=== PATIENT | female | born 1990 | race Caucasian/White ===

== ENCOUNTER 2020-05-10 17:39 | Emergency (ER) | payer OTHER ==
[~2020-05-10] VITALS: Ht 172.7 cm; Wt 147.4 kg
[~2020-05-10 17:39] MED LIST: Citalopram HBr20 MG PO; ESTR2 PO; IBUP600 PO; LITH300ER PO; Lamisil250 MG PO; MULVITMINE PO; OXYACE5T PO; Percocet 5-3251 EACH PO
[2020-05-12 20:07] LABS: HCV ANTIBODY 0.1 (0.0-0.9); HIV SCREEN 4TH GENERATION WRFX Non Reactive (Non Reactive)
== END 2020-05-10 18:15 | disposition home or self-care (01) ==
LOC: ER 17:39
PROVIDERS: Physician Assistant
DX: S61.230A Puncture wound without foreign body of right index finger without damage to nail, initial encounter (principal); Z77.21 Contact with and (suspected) exposure to potentially hazardous body fluids; W46.1XXA Contact with contaminated hypodermic needle, initial encounter; Z23 Encounter for immunization
CPT/HCPCS: 36415; 84460; 86317; 86803; 87389; 90471; 90714; 99282-25

== ENCOUNTER 2023-08-26 19:12 | Emergency (ER) | payer OTHER ==
[~2023-08-26] VITALS: Ht 172.7 cm; Wt 158.8 kg
[2023-08-26 19:26] VITALS: BP 142/94
[2023-08-26 20:25] LABS: Influenza A, PCR NEGATIVE (NEGATIVE); Influenza B, PCR NEGATIVE (NEGATIVE); Resp Syncytial Virus, PCR NEGATIVE (NEGATIVE); SARS-Cov-2 (COVID-19) PCR, MMC NEGATIVE (NEGATIVE)
== END 2023-08-26 21:15 | disposition home or self-care (01) ==
LOC: ER 19:12
PROVIDERS: Emergency Medicine
DX: J06.9 Acute upper respiratory infection, unspecified (principal); F17.210 Nicotine dependence, cigarettes, uncomplicated; Z88.0 Allergy status to penicillin; Z79.899 Other long term (current) drug therapy
CPT/HCPCS: 0241U; 99284

== ENCOUNTER 2024-05-12 15:21 | Emergency (ER) | payer OTHER ==
[~2024-05-12] VITALS: Ht 172.7 cm; Wt 158.8 kg
[2024-05-12 15:29] VITALS: BP 96/83
[2024-05-12] MEDS ORDERED: Lidocaine 4% 1 Patch TOP ONE (17:25)
[2024-05-12] MEDS ORDERED: LIDOCAINE1 EACH TOP (17:27)
[2024-05-12] MEDS ORDERED: Robaxin750 MG PO (17:27)
== END 2024-05-12 17:36 | disposition home or self-care (01) ==
LOC: ER 15:21
DX: M25.531 Pain in right wrist (principal); M25.511 Pain in right shoulder; F17.210 Nicotine dependence, cigarettes, uncomplicated; Z88.0 Allergy status to penicillin; Z79.899 Other long term (current) drug therapy
CPT/HCPCS: 73110; 99283-25; A9270; L3917

== ENCOUNTER 2025-06-09 10:29 | Emergency (ER) | payer OTHER ==
[~2025-06-09] VITALS: Ht 172.7 cm; Wt 132.4 kg
[~2025-06-09 10:29] MED LIST changes: +LIDOCAINE1 EACH TOP; +Robaxin750 MG PO
[2025-06-09] MEDS ORDERED: Ondansetron HCl 2 MG / ML 2ML Vial IV ONE (11:05)
[2025-06-09] MEDS ORDERED: NS 1,000 ML IV SCH (11:05)
[2025-06-09 11:31] LABS: BASOPHILS ABSOLUTE AUTO 0.11 K/mm3 (0.00-0.23); BASOPHILS PERCENT AUTO 1 % (0-2); EOSINOPHILS ABSOLUTE AUTO 0.16 K/mm3 (0.00-0.68); EOSINOPHILS PERCENT AUTO 2 % (0-6); Hematocrit 48.7 % (33.0-51.0); Hemoglobin 16.4 g/dL (11.5-16.0); IMMATURE GRAN ABSOLUTE AUTO 0.03 K/mm3 (0.00-0.10); IMMATURE GRAN PERCENT AUTO 0 % (0-1); LYMPHOCYTES ABSOLUTE AUTO 1.87 K/mm3 (0.84-5.20); LYMPHOCYTES PERCENT AUTO 22 % (21-46); MONOCYTES ABSOLUTE AUTO 1.49 K/mm3 (0.16-1.47); MONOCYTES PERCENT AUTO 17 % (4-13); Mean Corpuscular HGB Conc 33.7 g/dL (31.5-36.5); Mean Corpuscular Volume 84 fL (80-100); NEUTROPHILS ABSOLUTE AUTO 5.04 K/mm3 (1.96-9.15); NEUTROPHILS PERCENT AUTO 58 % (41-73); NRBC ABSOLUTE 0.00 K/mm3 (0.00-0.02); NRBC Auto 0.0 /100 WBC (0.0-0.2); Platelet Count 270 K/mm3 (150-400); RDW Coefficient Variation 15.2 % (11.7-14.2); RDW Standard Deviation 46.7 fL (35.1-46.3)
[2025-06-09 12:06] LABS: Alanine Aminotransfer (ALT/SGP 59.0 U/L (12-78); Albumin, Blood 3.4 g/dL (3.4-5.0); Albumin/Globulin Ratio 0.8 (0.8-1.8); Anion Gap 9.0 mmol/L (3-11); Aspartate Aminotrans (AST/SGOT 32.0 U/L (12-37); Bilirubin, Total 0.9 mg/dL (0.1-1.0); Blood Urea Nitrogen 12.0 mg/dL (8-24); CO2, Blood 22.0 mmol/L (21-32); Calcium, Blood 9.2 mg/dL (8.5-10.1); Chloride, Blood 109.0 mmol/L (98-108); Creatinine, Blood 0.65 mg/dL (0.40-1.00); Globulin, Blood 4.2 g/dL (2.2-4.0); Glucose, Blood 117.0 mg/dL (70-99); Potassium, Blood 3.4 mmol/L (3.5-5.5); Sodium, Blood 137.0 mmol/L (136-145); Total Protein, Blood 7.6 g/dL (6.4-8.2)
[2025-06-09 13:34] VITALS: BP 129/90
== END 2025-06-09 13:59 | disposition home or self-care (01) ==
LOC: ER 10:29
PROVIDERS: Physician Assistant
DX: E86.0 Dehydration (principal); Z88.0 Allergy status to penicillin; Z88.8 Allergy status to other drugs, medicaments and biological substances
CPT/HCPCS: 80053; 83690; 85025; 96374; 99283-25; J2405; J7030